=== PATIENT | male | born 1995 | race Caucasian/White ===

== ENCOUNTER 2020-09-16 13:34 | Emergency (ER) | payer OTHER ==
[~2020-09-16] VITALS: Ht 177.8 cm; Wt 150.0 kg
[2020-09-16] MEDS ORDERED: NITROGLYCERIN 0.4MG TABLET SL SL PRN (14:00)
[2020-09-16] MEDS ORDERED: SODIUM CHLORIDE 0.9% 1,000 ML IV ONE (14:00)
[2020-09-16] MEDS ORDERED: LORAZEPAM 2MG/ML CPJ IV ONE (14:00)
[2020-09-16 14:19] LABS: BASOPHILS % 0.6 % (0.0-2.0); EOSINOPHILS % 0.4 % (0.0-5.0); HEMATOCRIT. 45.4 % (42.0-52.0); HEMOGLOBIN. 15.1 g/dL (14.0-18.0); LYMPHOCYTES % 18.1 % (20.0-50.0); MEAN CORPUSCULAR HEMOGLOBIN 31.9 pg (28.0-32.0); MEAN CORPUSCULAR VOLUME 95.9 fL (80.0-94.0); MEAN PLATELET VOLUME 7.4 fl (7.4-10.4); MONOCYTES % 8.6 % (2.0-8.0); NEUTROPHILS % 72.3 % (40.0-76.0); PLATELET 354 x1000/uL (130-400); RED BLOOD CELL COUNT 4.73 mill/uL (4.7-6.1); RED CELL DISTRIBUTION WIDTH 13.3 % (11.6-14.6)
[2020-09-16 14:27] LABS: CHLORIDE 110 mEq/L (98-107)
[2020-09-16 14:31] LABS: ETHANOL BLOOD < 10 mg/dL
[2020-09-16 17:05] VITALS: BP 149/82
== END 2020-09-16 17:32 | disposition short-term general hospital (02) ==
LOC: ER 14:03 → CANBEDREQ 17:18 → ER 17:32
DX: R07.89 Other chest pain (principal); F41.9 Anxiety disorder, unspecified; J45.909 Unspecified asthma, uncomplicated; F17.290 Nicotine dependence, other tobacco product, uncomplicated
CPT/HCPCS: 36415; 71045; 80053; 80320; 83880; 84484; 85025; 93005; 96361; 96374; 99285; J2060; J7030; Z7610; G0480